=== PATIENT | female | born 1950 | race Caucasian/White ===

== ENCOUNTER 2019-06-26 10:47 | Outpatient (CLI) | payer MEDICARE, SELFPAY ==
--- NOTE | 2019-06-26 10:52 | XR_ITS ---
WS: [id number] SCREENING DEXA SCAN [email or web address] CLINICAL INFORMATION: ASYMPTOMATIC POSTMENOPAUSAL COMPARISON: None. FINDINGS: The L1-L4 bone mineral density measures 1.067 g/cm2. This corresponds to a T score score of -0.9 and Z score of 0.3. Left femoral neck bone mineral density measures 0.862 g/cm2. This corresponds to a T score of -1.2 an d Z score of -0.1. Right femoral neck bone mineral density measures 0.908 g/cm2. This corresponds to a T score -0.8of an d Z score of 0.3. Mean femoral neck bone mineral density measures 0.885 g/cm2. This corresponds to a T score of -1.0 an d Z score of 0.1. XR/XR DEXA axial skeleton* [id number] IMPRESSION: Osteopenia at the lower end of the range. Patient's FRAX calculated 10 year probability for major osteoporotic fracture i s 27.8 % and osteoporotic hip fracture is 4.7%.
== END 2019-06-26 10:48 | disposition home or self-care (01) ==
PROVIDERS: Family Provider Internal Medicine; PCP Internal Medicine; Visit Provider Internal Medicine
DX: Z78.0 Asymptomatic menopausal state (principal)
CPT/HCPCS: 77080

== ENCOUNTER → 2019-07-03 11:48 | Outpatient (BNVA) | payer MEDICARE, SELFPAY | PROVIDERS: Family Provider Internal Medicine; PCP Internal Medicine; Referring Provider Internal Medicine; Visit Provider Podiatrist Foot & Ankle Surgery | DX: L60.3 Nail dystrophy (principal) | CPT/HCPCS: 87210 ==

== ENCOUNTER 2020-05-12 08:03 | Outpatient (CLI) | payer MEDICARE, SELFPAY ==
--- NOTE | 2020-05-12 08:08 | MM_ITS ---
WS: [id number] BILATERAL SCREENING DIGITAL MAMMOGRAM WITH CAD HISTORY: SCREENING COMPARISON: 12/25/2018, 12/03/2018 and 12/27/2012, 10/02/2009 Bilateral CC and MLO views submitted. Computer aided detection analyzed. Breast composition: The breasts are heterogeneously dense, which may obscure small masses. No suspici ous masses, microcalcifications or architectural distortion. Benign breast arterial calcifications. A symmetry in the superior posterior LEFT breast is stable. Benign lymph node against the posterior RIG HT pectoralis muscle. MM/[place] [id number] IMPRESSION: BI-RADS: 2-Benign FOLLOW UP: 1 Year Follow-up
== END 2020-05-12 08:04 | disposition home or self-care (01) ==
LOC: RADSHAW 08:06
PROVIDERS: Family Provider Internal Medicine; PCP Internal Medicine; Visit Provider Internal Medicine
DX: Z12.31 Encounter for screening mammogram for malignant neoplasm of breast (principal)
CPT/HCPCS: 77067

== ENCOUNTER 2020-06-17 15:13 | Outpatient (CLI) | payer MEDICARE, SELFPAY | END 2020-06-17 15:14 | disposition home or self-care (01) | LOC: SPT 15:13 | PROVIDERS: Family Provider Internal Medicine; PCP Internal Medicine; Visit Provider Podiatrist Foot & Ankle Surgery | DX: Z46.89 Encounter for fitting and adjustment of other specified devices (principal); M72.2 Plantar fascial fibromatosis | CPT/HCPCS: 97760; L4397 ==

== ENCOUNTER 2021-08-09 10:54 | Outpatient (CLI) | payer MEDICARE, SELFPAY ==
--- NOTE | 2021-08-09 11:00 | MM_ITS ---
WS: [id number] SCREENING DIGITAL MAMMOGRAM WITH CAD HISTORY: SCREENING COMPARISON: 05/12/2020, 12/25/2018, 12/03/2018 and 08/30/2017 Bilateral CC and MLO views submitted. Computer aided detection analyzed. Breast composition: The breasts are heterogeneously dense, which may obscure small masses. Lobulated nodule measuring 4 mm in the medial inferior RIGHT breast near 4:00 at middle depth. Breast arterial calcifications bilaterally. There is a group of calcifications and a prior biopsy clip at 1 2:00 of the LEFT breast. No increase in size or number of these calcifications. MM/[place] [id number] IMPRESSION: BI-RADS: 0-Incomplete: Need additional imaging evaluation FOLLOW UP: Need Additional Imaging RIGHT breast: Spot compression views (CC and MLO). True ML. Ultrasound to follo w if abnormality persists.
== END 2021-08-09 10:55 | disposition home or self-care (01) ==
PROVIDERS: PCP Internal Medicine; Visit Provider Internal Medicine
DX: Z12.31 Encounter for screening mammogram for malignant neoplasm of breast (principal)
CPT/HCPCS: 77067

== ENCOUNTER 2021-08-30 08:28 | Outpatient (CLI) | payer MEDICARE, SELFPAY ==
--- NOTE | 2021-08-30 08:38 | MM_ITS ---
WS: [id number] ADDITIONAL VIEWS RIGHT MAMMOGRAM RIGHT BREAST ULTRASOUND HISTORY: RIGHT ABNORMAL MAMMOGRAM COMPARISON: 08/09/2021, 05/12/2020, 12/03/2018 RIGHT MAMMOGRAM: Spot compression views and true ML. The abnormality persists in the medial RIGHT breast near 3-4 o'clock. This is at middle depth. RIGHT BREAST ULTRASOUND 2-D and color Doppler imaging submitted. Ultrasound at 3:00, 1 cm from the nipple demonstrates a slightly lobulated cyst measuring 4 x 5 x 4 m m which is very slightly complex. This does correspond in position and size and shape to the mammogra phic abnormality. There is a smaller cyst at 5:00, 2 cm from the nipple. MM/[place] [id number] IMPRESSION: BI-RADS: 3-Probably Benign FOLLOW UP: 6 Month Follow-up Recommend limited RIGHT breast ultrasound follow-up in 6 months of the complex cyst at 3:00, 1 cm from the nipple.
== END 2021-08-30 08:29 | disposition home or self-care (01) ==
LOC: RADSHAW 08:34
PROVIDERS: PCP Internal Medicine; Visit Provider Internal Medicine
DX: R92.8 Other abnormal and inconclusive findings on diagnostic imaging of breast (principal); N60.01 Solitary cyst of right breast
CPT/HCPCS: 76642; 77061

== ENCOUNTER 2021-11-09 07:28 | Outpatient (CLI) | payer MEDICARE, SELFPAY ==
--- NOTE | 2021-11-09 07:37 | USCV_ITS ---
Darius Babcock Age: 71 Gender: F : 1950 Exam Date: 11/09/2021 07:56 Ordering Phys: Missy Fowler MD Technologist: TAO Exam Location: [facility] [place] Indication: Near syncope BP: 120 / 64 HR: 60 Rhythm: Sinus Technical Quality: Adequate MEASUREMENTS (Male / Female) Normal Values 2D ECHO LV Diastolic Diameter PLAX 2.4 cm 4.2 - 5.9 / 3.9 - 5.3 cm LV Systolic Diameter PLAX 1.7 cm IVS Diastolic Thickness 1.1 cm 0.6 - 1.0 / 0.6 - 0.9 cm IVS Systolic Thickness 1.5 cm LVPW Diastolic Thickness 1.2 cm 0.6 - 1.0 / 0.6 - 0.9 cm LVPW Systolic Thickness 1.2 cm RV Chamber Size 2.4 cm LVOT Diameter 2.0 cm LV Ejection Fraction 2D Teich 62.4 % LV Ejection Fraction MOD 2C 59.5 % LV Ejection Fraction 2C AL 59.9 % LA Diameter 2.3 cm LA Width 2.6 cm LA Height 3.4 cm RA Width 2.1 cm RA Height 3.4 cm Aorta at Sinotubular Diameter 2.4 cm IVC Diameter 1.4 cm M-MODE Aortic Annulus Diameter 2.9 cm LA Ao Ratio MM 0.7 MV E Point Septal Separation 1.0 cm DOPPLER AV Peak Velocity 123.0 cm/s LVOT Peak Velocity 90.0 cm/s AV Area Cont Eq vti 2.5 cm squared AV Area Cont Eq pk 2.3 cm squared MV Area PHT 2.8 cm squared Mitral E to A Ratio 0.9 MV E' Velocity 50.5 cm/s Mitral E to MV E' Ratio 12.8 Mitral E to LV E' Lateral Ratio 12.7 Mitral E to LV E' Septal Ratio 13.2 TR Peak Velocity 369.0 cm/s TR Peak Gradient 54.5 mmHg TV Peak E Velocity 50.0 cm/s PV Peak Velocity 95.0 cm/s RV Acceleration Time 0.1 s RV Ejection Time 0.3 s RV AcT/ET 0.3 FINDINGS Left Ventricle Normal left ventricular size and systolic function, EF 61 %. Mild hypokinesia of the basal inferior wall segment.mild left ventricular hypertrophy. Grade II/IV diastolic dysfunction, moderately elevated filling pressures. Right Ventricle Normal right ventricular size and systolic function. Right Atrium The right atrium is normal in size. Left Atrium Mildly increased left atrial size. Mitral Valve Thickened mitral valve. Aortic Valve Thickened aortic valve. Tricuspid Valve No gross abnormalities noted Pulmonic Valve Pulmonic valve not well visualized. Pericardium Normal pericardium without effusion. Aorta Normal ascending aorta dimension. IVC Of normal size CONCLUSIONS Normal left ventricular size and systolic function, EF 61 %. Mild hypokinesia of the basal inferior wall segment.mild left ventricular hypertrophy. Grade II/IV diastolic dysfunction, moderately elevated filling pressures. Mildly increased left atrial size. Minimally thickened aortic and mitral valves. No significant stenotic or regurgitant lesions. There is no pericardial effusion. Technically difficult study because of the poor ultrasonic window. No previous study is available for comparison. Dr Stacey Ribeiro MD FACC (Electronically Signed) Final Date: 09 Nov 2021 13:10 S
== END 2021-11-09 07:29 | disposition home or self-care (01) ==
PROVIDERS: PCP Internal Medicine; Visit Provider Internal Medicine
DX: R55 Syncope and collapse (principal); I51.7 Cardiomegaly
CPT/HCPCS: 93306

== ENCOUNTER → 2021-11-18 12:59 | Outpatient (BNVA) | payer MEDICARE, SELFPAY | PROVIDERS: PCP Internal Medicine; Visit Provider Orthopaedic Surgery | DX: M16.11 Unilateral primary osteoarthritis, right hip (principal); M17.11 Unilateral primary osteoarthritis, right knee; M17.12 Unilateral primary osteoarthritis, left knee; M25.569 Pain in unspecified knee | CPT/HCPCS: 73502; 73560; 73565; 99203 ==

== ENCOUNTER → 2021-12-09 10:53 | Outpatient (BNVA) | payer MEDICARE, SELFPAY | PROVIDERS: PCP Internal Medicine; Visit Provider Internal Medicine Cardiovascular Disease | DX: R07.9 Chest pain, unspecified (principal); M17.11 Unilateral primary osteoarthritis, right knee; R06.02 Shortness of breath | CPT/HCPCS: 99203 ==

== ENCOUNTER 2021-12-21 08:58 | Outpatient (CLI) | payer MEDICARE, SELFPAY ==
--- NOTE | 2021-12-21 10:17 | ECG_ITS ---
[facility] Test Date: 2021-12-21 Pat Name: Darius Babcock Department: Room: Gender: Female Cytotechnologist: Shikha Cardona : 1950 Requested By: Luciano Paz Order Number: [id number] Gerry MD: Mt Torres M.D. Interpretive Statements NAME OF STUDY: LEXISCAN SESTAMIBI STRESS TEST INDICATION: [cp, ] Procedure: At the baseline, the blood pressure was 127/75 mmHg with a heart rate of 63 bpm. The electrocardiogram showed normal sinus rhythm, normal axis with normal ST and T's. The Lexiscan was infused over a period of 20 seconds. A total of 0.4 mg of Lexiscan was infused. The stress phase was continued for a total of 5 minutes. Heart rate was at the end of stress phase was 87 bpm and a blood pressure of 161/80 mmHg. The EKG at the peak infusion revealed since normal sinus rhythm with no significant ST-T wave changes. Sestamibi was injected 20 seconds after the Lexiscan infusion. Blood pressure at the end of recovery phase was 161/78 mmHg with a heart rate of 78 bpm. Conclusion: 1. Normal EKG response to Lexiscan infusion 2. No Lexiscan induced chest pain or cardiac arrhythmia. 3. Normal blood pressure and heart rate response. 4. Sestamibi/sestamibi perfusion scan pending; see separate report. Electronically Signed On 01-01-2022 12:22:17 CDT by Mt Torres M.D. [id number]
--- NOTE | 2021-12-21 10:17 | NMCV_ITS ---
NM adam perf SPECT r/s* [id number] Darius Babcock Age: 71 Gender: F : 1950 Exam Date: 12/21/2021 10:40 Ordering Phys: Luciano Paz MD ([email or web address]) Technologist: MICKI Miramontes Exam Location: [facility] Indications: CHEST PAIN STRESS TEST Please see separate stress test report in [facility] for full findings IMAGE PROTOCOL Rest/Stress 1 Lexiscan Day Radiopharmaceutical Dose (mCi) Administration Site Administered by Rest: Tc-99m 10.7 IV MICKI Minaya Sestamibi Stress:Tc-99m 32.4 IV MICKI Minaya Sestamibi Rest: 21-Dec-2021 60 Discovery 630 Stress: 21-Dec-2021 30 Discovery 630 0.4mg Lexiscan. Images obtained in supine and prone position. SPECT RESULTS Technical Quality: Excellent Raw Data Analysis: Normal Image Corrections: No attenuation or motion correction applied Summed Stress Score: 0 Summed Rest Score: 14 Summed Difference Score: 0 PERFUSION FINDINGS SPECT images demonstrate homogeneous tracer distribution throughout the myocardium. FUNCTIONAL RESULTS (calculated via Gated SPECT) Stress Image LV EF (%): 70 Stress EDV (mL):77 TID: 1.12 Stress ESV (mL):23 FUNCTIONAL FINDINGS: There is normal left ventricular systolic function. IMPRESSIONS 1. Normal myocardial perfusion imaging with no evidence of ischemia 2. LV systolic function is normal Mt Torres MD (Electronically Signed) Final Date: 23 December 2021 10:24 S
[2021-12-21 10:18] VITALS: BMI 33.6
[2021-12-21 11:27] VITALS: BP 161/78; PULSE 78
[2021-12-21] MEDS: regadenoson 0.4 Mg/5 ml Syringe IVP (11:27)
== END 2021-12-21 08:59 | disposition home or self-care (01) ==
PROVIDERS: PCP Internal Medicine; Visit Provider Internal Medicine Cardiovascular Disease
DX: R07.89 Other chest pain (principal)
CPT/HCPCS: 78452; 93017; A9500; J2785

== ENCOUNTER → 2022-01-31 13:00 | Outpatient (BNVA) | payer MEDICARE, SELFPAY | PROVIDERS: PCP Internal Medicine; Visit Provider Internal Medicine Cardiovascular Disease | DX: R07.9 Chest pain, unspecified (principal); I10 Essential (primary) hypertension | CPT/HCPCS: 99213; 99214 ==

== ENCOUNTER 2022-04-12 08:58 | Outpatient (CLI) | payer MEDICARE, SELFPAY ==
--- NOTE | 2022-04-12 09:12 | US_ITS ---
WS: [id number] ULTRASOUND RIGHT BREAST HISTORY: ABNORMAL MAMMO COMPARISON: 08/30/2021 and 08/09/2021 TECHNIQUE: 2-D and Doppler. No change in the hypoechoic nodules in the RIGHT breast at the areolar and also 1 cm. There are 2 zion y similar hypoechoic nodule which are probably complex cysts. Nevertheless, no increase in size and n o increased vascularity. The nodule at 3:00 measures 3 x 3 x 6 mm. The additional nodule at 1 cm from the nipple measures 4 x 3 x 5 mm. US/US breast RT limited* [id number] IMPRESSION: BI-RADS: 3-Probably Benign FOLLOW-UP: 6 Month Follow-up Patient to return in 6 months for annual mammogram in August 2022. Follow-up ult rasound of these indeterminate but likely benign RIGHT breast nodules at 3:00 r ecommended.
== END 2022-04-12 08:59 | disposition home or self-care (01) ==
LOC: RAD 09:01
PROVIDERS: PCP Internal Medicine; Visit Provider Internal Medicine
DX: R92.8 Other abnormal and inconclusive findings on diagnostic imaging of breast (principal)
CPT/HCPCS: 76642

== ENCOUNTER 2022-09-02 12:51 | Outpatient (CLI) | payer MEDICARE, SELFPAY ==
--- NOTE | 2022-09-02 13:08 | XR_ITS ---
WS: [id number] SCREENING DEXA SCAN [employer] CLINICAL INFORMATION: ASYMPTOMATIC MENOPAUSAL STATE COMPARISON: June 26, 2019 FINDINGS: The L1-L4 bone mineral density measures 1.070 g/cm2. This corresponds to a T score score of -0.9 and Z score of 0.1. Left femoral neck bone mineral density measures 0.864 g/cm2. This corresponds to a T score of -1.1 an d Z score of -0.1. Right femoral neck bone mineral density measures 0.915 g/cm2. This corresponds to a T score -0.7of an d Z score of 0.3. Mean femoral neck bone mineral density measures 0.889 g/cm2. This corresponds to a T score of -0.9 an d Z score of 0.1. XR/XR DEXA axial skeleton* [id number] IMPRESSION: Normal bone mineralization lumbar spine at the lower end of the range approachi ng osteopenia. Osteopenia femoral necks. Patient's FRAX calculated 10 year probability for major osteoporotic fracture i s 18.0 % and osteoporotic hip fracture is 5.9%. Bone mineralization lumbar spine has increased 0.3% since 2019 Bone mineralization femoral necks has increased 0.5% since 2019
== END 2022-09-02 12:52 | disposition home or self-care (01) ==
LOC: RAD 12:52
PROVIDERS: PCP Nurse Practitioner Family; Visit Provider Nurse Practitioner Family
DX: Z78.0 Asymptomatic menopausal state (principal); M85.88 Other specified disorders of bone density and structure, other site
CPT/HCPCS: 77080

== ENCOUNTER 2022-10-14 09:33 | Outpatient (CLI) | payer MEDICARE, SELFPAY ==
--- NOTE | 2022-10-14 09:49 | US_ITS ---
WS: [id number] ULTRASOUND BREAST RIGHT TECHNIQUE: Ultrasound right breast focused area of concern. CLINICAL INFORMATION: R ABNORMAL MAMMO COMPARISON: April 12, 2022 FINDINGS: No significant change in the small previously described 3:00 breast cyst at the areola measuring 4.4 x 4.6 x 3.9 mm. In addition, small hypoechoic nodule at the 3:00 position 1 cm from the nipple likel y a small complex cyst with through transmission is also unchanged. No suspicious new findings. US/US breast RT limited* [id number] IMPRESSION: BI-RADS 2 benign FOLLOW UP: Return to annual screening mammography.
== END 2022-10-14 09:34 | disposition home or self-care (01) ==
PROVIDERS: PCP Nurse Practitioner Family; Visit Provider Nurse Practitioner Family
DX: R92.8 Other abnormal and inconclusive findings on diagnostic imaging of breast (principal)
CPT/HCPCS: 76642

== ENCOUNTER 2022-10-17 12:37 | Outpatient (CLI) | payer MEDICARE, SELFPAY ==
--- NOTE | 2022-10-17 13:06 | MM_ITS ---
WS: [id number] BILATERAL 3D TOMOSYNTHESIS DIGITAL SCREENING MAMMOGRAPHY WITH CAD CLINICAL INFORMATION: SCREENING HISTORY: Screening mammogram. No current complaints. COMPARISON: Mammogram and ultrasound 2021 TECHNIQUE: Bilateral CC and MLO views. FINDINGS: The breasts are composed of heterogeneous fibroglandular density tissue, which can limit the detectio n of small underlying mass lesions. No suspicious mass, asymmetry, calcifications, or architectural d istortion. No evidence of malignancy. Vascular calcification. Biopsy clip LEFT breast. A few incident al calcifications. MM/[place] [id number] IMPRESSION: BI-RADS: 2-Benign FOLLOW UP: 1 Year Follow-up Recommend return to annual screening mammography.
== END 2022-10-17 12:38 | disposition home or self-care (01) ==
PROVIDERS: PCP Nurse Practitioner Family; Visit Provider Nurse Practitioner Family
DX: Z12.31 Encounter for screening mammogram for malignant neoplasm of breast (principal)
CPT/HCPCS: 77063; 77067

== ENCOUNTER 2023-07-17 19:35 | Emergency (ER) | payer MEDICARE, SELFPAY ==
[2023-07-17 19:43] VITALS: BP 133/79; PULSE 78; RESP 16; TEMP 37.5; O2SAT 95; BMI 32.9
[2023-07-17] MEDS: glucagon 1 mg/mL KIT 1 mL IM (19:57)
--- NOTE | 2023-07-17 20:13 | ED_ITS ---
HPI - General Adult General: Chief complaint: Airway/Esophagus Foreign Body Stated complaint: airway obstruction Time Seen by Provider: 07/17/23 19:45 Source: patient and EMS Mode of arrival: EMS Limitations: no limitations History of Present Illness: 73-year-old female states that she is ea ting rice and felt like she had got stuck in her esophagus. She states this happened just prior to arrival states she has not been able to tolerate any liquids since she states anything she drinks comes back up. States she had to have her esophagus stretched in the past. States that she feels the food bolus right in her chest she denies any coughing or shortness of breath. No vomiting. Associated symptoms: Deny chest pain, dyspnea, headache(s), nausea, rash or vomiting Review of Systems Const: Denies: fever(s) or chills Eyes: Denies: blurry vision or eye discomfort ENMT: Denies: throat pain Card: Denies: chest pain Resp: Denies: dyspnea GI: Reports: dysphagia; Denies: abdominal pain, nausea, vomiting or diarrhea : Denies: dysuria or dribbling Musc: Denies: neck pain or back pain Skin/Breast: Denies: rash Neuro: Denies: headache(s) PFSH ED PFSH: Medical History Obesity EDUARDO (obstructive sleep apnea) GERD (gastroesophageal reflux disease) Dyslipidemia HTN (hypertension) Foreign body of ear, left SOB (shortness of breath) Chest pain Family History Father Diabetes Hypertension Stroke Brother Diabetes Plaque psoriasis Present in 4/4 Brothers Brother CAD (coronary artery disease), Onset Age: 64 CABG Plaque psoriasis Present in 4/4 Brothers Brother Atrial fibrillation Plaque psoriasis Present in 4/4 Brothers Brother Plaque psoriasis Present in 4/4 Brothers Social History Smoking and tobacco/nicotine status: never used tobacco/nicotine Physical Exam Const: COMMON NORMALS: no acute distress, patient oriented x3 and healthy appearing HENMT: COMMON NORMALS: normocephalic and atraumatic HEAD & SCALP: normo cephalic and atraumatic Neck/C-Spine: COMMON NORMALS: full ROM and supple Chest: COMMONS NORMALS: normal inspection of the chest Resp: COMMON NORMALS: normal respiratory effort Cardio: COMMON NORMALS: regular rate, regular rhythm and No murmurs present (Cardio) RATE: regular rate RHYTHM: regular rhythm GI: COMMON NORMALS: Normal to inspection, nondistended, normoactive bowel sounds present, Soft to palpation, non-tender and no masses PALPATION: Yes Soft to palpation Extremity: COMMON NORMALS: normal to inspection and full ROM Neuro: COMMON NORMALS: patient oriented x3, moves all extremities and no focal motor deficits Psych: COMMON NORMALS: mental status grossly normal, Normal thought process present and cooperative THOUGHT PROCESS: Normal thought process present Skin: COMMON NORMALS: no rashes or lesions noted and no wounds GENERAL SKIN EXAM: no rashes or lesions noted Course Vital Signs: Vital signs: Vital Signs Temperature 99.5 F 07/17/23 19:43 Pulse Rate 66 07/17/23 20:25 Respiratory Rate 16 07/17/23 20:25 Blood Pressure 159/76 07/17/23 20:25 Pulse Oximetry 92 07/17/23 20:25 Oxygen Delivery Me thod Room Air 07/17/23 19:43 MDM - General Adult Medical Decision Making Patient presents here with an esophageal food impaction it resolved here after glucagon she is able to tolerate p.o. without any difficulty she stable for discharge we will get her follow-up with surgery for likely EGD she is return if worsening she understands agrees to plan Medical Records I reviewed the patient's medical records. No radiology studies performed this visit Discharge Plan Discharge Patient Disposition: Home Clinical Impression: Food impaction of esophagus Qualifiers: Encounter type: initial encounter Qualified Code(s): T18.128A - Food in esophagus causing other injury, initial encounter Condition: Stable Prescriptions: No Action duloxetine 30 mg capsule, delayed rel sprinkle 30 mg PO QDAY lisinopril 40 mg tablet 40 mg PO QDAY klualnqaqo-qknivhrrcoyxz-oxhc [Fioricet] 50-300-40 mg capsule 1 cap PO Q8H PRN atenolol 25 mg tablet 50 mg PO QDAY albuterol sulfate [ProAir HFA] 90 mcg/actuation HFA aerosol inhaler 1 inh INHALATION ONCE PRN amlodipine 10 mg tablet 10 mg PO DAILY famotidine [Pepcid] 20 mg tablet 20 mg PO DAILY pantoprazole 40 mg tablet,delayed release (DR/EC) 40 mg PO DAILY potassium chloride [Klor-Con M20] 20 mEq tablet,ER particles/crystals 10 meq PO DAILY (DME) Night Splint See Rx Instructions .Route .MEDSUPPLY Qty: 1 0RF Rx Instructions: As directed diclofenac sodium [Voltaren] 1 % gel 2 g topical QID PRN Rx Instructions: apply to single elbow, wrist or hand; for hand includes palm/fingers/back of hand multivitamin Tablet 1 tab PO DAILY cholecalciferol (vitamin D3) 125 mcg (5,000 unit) capsule 125 mcg PO DAILY atorvastatin 10 mg tablet PO pimecrolimus [Elidel] 1 % cream 1 applic topical BID Qty: 100 1RF Rx Instructions: To affected areas in skin folds prn Discharge Orders: Discharge ED (Routine); Ordered 07/17/23 Ordered By: Celia Washington Referrals: Wilfrid Li MD [Physician] - 1-3 days Gia Licea NP [Primary Care Provider] - Discharge Diet: Advance as tolerated Discharge Activity: Resume usual activity Patient Instructions: Dysphagia (ED) Coding Level of Care Code ED Sociology Instructor for [employer]
[2023-07-17 20:25] VITALS: BP 159/76; PULSE 66; RESP 16; O2SAT 92
[2023-07-17 21:15] VITALS: BP 159/76; PULSE 66; RESP 16; TEMP 37.5; O2SAT 92
--- NOTE | 2023-07-19 07:47 | DCPLANNER ---
sent to GEN surg/ esophageal food impaction-
== END 2023-07-17 21:17 | disposition home or self-care (01) ==
PROVIDERS: Emergency Provider Emergency Medicine; PCP Nurse Practitioner Family
DX: T18.128A Food in esophagus causing other injury, initial encounter (principal); W44.F3XA Food entering into or through a natural orifice, initial encounter; E78.5 Hyperlipidemia, unspecified; I10 Essential (primary) hypertension
CPT/HCPCS: 96372; 99284; J1610

== ENCOUNTER → 2023-08-01 12:35 | Outpatient (BNVA) | payer MEDICARE, SELFPAY | PROVIDERS: PCP Nurse Practitioner Family; Referring Provider Emergency Medicine; Visit Provider Surgery | DX: K21.9 Gastro-esophageal reflux disease without esophagitis (principal) | CPT/HCPCS: 99203 ==

== ENCOUNTER 2023-08-04 07:52 | Outpatient (CLI) | payer MEDICARE, SELFPAY ==
--- NOTE | 2023-08-04 08:02 | USCV_ITS ---
Darius Babcock Age: 73 Gender: F : 1950 Exam Date: 08/04/2023 08:29 Ordering Phys: Gia Licea NP Technologist: José Nice Exam Location: [facility] – [place] Indication: headache Risk Factors: Previous Vascular Surgery: Right Brachial BP: / Left Brachial BP: / Right Left Velocity (cm/s) Spectral Plaque Velocity (cm/s) Spectral Plaque Syst/Diast Broadening Syst/Diast Broadening 105.50/16.40 Prox CCA 99.80 / 21.30 72.50/ 19.70 Mid CCA 81.80 / 24.80 114.20/32.40 Distal CCA 72.90 / 23.30 37.30/ 9.80 Prox ICA 45.80 / 13.30 47.10/ 14.20 Mid ICA 62.20 / 22.30 79.00/ 28.60 Distal ICA 74.30 / 25.80 61.50 ECA 80.00 0.70 ICA/CCA 1.00 Antegrade Vertebral Antegrade 78.60/ 23.60 cm/s 53.10/ 17.00 cm/s Tri Subclavian Tri 99.80 90.70 CONCLUSIONS Right ICA stenosis <50%. Left ICA stenosis <50%. Normal antegrade Doppler flow noted in the right vertebral artery. Normal antegrade Doppler flow noted in the left vertebral artery. Wesley Koch MD (Electronically Signed) Final Date: 04 August 2023 14:10 S
== END 2023-08-04 07:53 | disposition home or self-care (01) ==
LOC: RAD 07:52
PROVIDERS: PCP Nurse Practitioner Family; Visit Provider Nurse Practitioner Family
DX: I65.23 Occlusion and stenosis of bilateral carotid arteries (principal)
CPT/HCPCS: 93880

== ENCOUNTER 2023-08-10 08:19 | Day surgery (SDC) | payer MEDICARE, SELFPAY ==
[2023-08-10 08:39] VITALS: BP 144/85; PULSE 65; RESP 18; TEMP 36.3; O2SAT 97; BMI 34.7
--- NOTE | 2023-08-10 08:39 | W.PM.OPSUD ---
Surgery/Procedure H&P Update DATE OF PROCEDURE: August 10, 2023 DATE H&P PERFORMED: 08/01/23 PLANNED PROCEDURE: Operation Date: 08/10/23 09:25 Proposed Procedures p 12527 egd w /balloon dialation K21.9(Not Applicable) - Wilfrid Li MD
[2023-08-10] MEDS: sodium chloride 0.9% 1,000 ML 30 ML IV (08:51)
--- NOTE | 2023-08-10 08:54 | ANES.PREANE2 ---
Pre-Anesthetic Assessment Height/Weight: Height 1.57 m Weight 86.183 kg Temp Pulse Resp BP Pulse Ox O2 Del Method 97.3 F L 65 18 144/85 97 Room Air 08/10/23 08:39 08/10/23 08:39 08/10/23 08:39 08/10/23 08:39 08/10/23 08:39 08/10/23 08:39 Preop Diagnosis: GERD Operation Date: 08/10/23 09:25 Proposed Procedures p [id number] egd w /balloon dialation K21.9(Not Applicable) - Wilfrid Li MD Familial anesthetic complications: None Was Beta Korina taken within 24 hours: Yes Was Clonidine taken within 24 hours: N/A Last intake: Intake Last Liquid Date 08/09/23 Last Liquid Time 18:00 Last Solid Date 08/09/23 Last Solid Time 18:00 Social No alcohol and No tobacco Exam alert, oriented x 3, clear to auscultation bilaterally and regular rate & rhythm Airway Submandibular: within normal limits (TMJ) Cervical ROM: within normal limits Mallampati: Class II Dentition: full History/ROS No significant history except as noted and No significant complaints Pulmonary Asthma, Exertional Dyspnea and Sleep Apnea (No CPAP) CV/HEM Hypertension CONCLUSIONS Normal left ventricular size and systolic function, EF 61 %. Mild hypokinesia of the basal inferior wall segment.mild left ventricular hypertrophy. Grade II/IV diastolic dysfunction, moderately elevated filling pressures. Mildly increased left atrial size. Minimally thickened aortic and mitral valves. No significant stenotic or regurgitant lesions. There is no pericardial effusion. Technically difficult study because of the poor ultrasonic window. No previous study is available for comparison. None reported Hepatic None reported GI Gastroesophageal Reflux Disease (Controlled with meds) Multiple esophageal dilations H/O food impaction Metabolic Hyperlipidemia and Morbid Obesity [facility] [place]/skel Lower Back Pain and Osteoarthritis/DJD Neuropsych Headache Anesthetic Plan ASA status: 3 Anesthesia: Anesthesia Evaluation, General and MAC Risk of > 500 ml blood loss (7ml/kg in children): No Medications/Allergies Home Medications Medication Instructions Recorded Confirmed Last Taken Type fvedmevydq-qtrntopgewdzf-viaabamj 1 cap PO Q8H PRN Headache 07/03/19 08/08/23 Unknown History 50 mg-300 mg-40 mg capsule (Fioricet) duloxetine 30 mg capsule,delayed 30 mg PO QDAY 07/03/19 08/08/23 08/09/23 History release sprinkle lisinopril 40 mg tablet 40 mg PO QDAY 07/03/19 08/08/23 08/09/23 History Night Splint #1 ea 06/17/20 08/01/23 Unknown Rx amlodipine 10 mg tablet 10 mg PO DAILY 06/17/20 08/08/23 08/09/23 History famotidine 20 mg tablet (Pepcid) 20 mg PO DAILY 06/17/20 08/08/23 08/09/23 History pantoprazole 40 mg tablet,delayed 40 mg PO DAILY 06/17/20 08/08/23 08/09/23 History release potassium chloride 20 mEq 10 meq PO DAILY 06/17/20 08/08/23 08/09/23 History tablet,extended release(part/cryst) (Klor-Con M) albuterol sulfate 90 mcg/actuation 1 inh inhalation DAILY PRN 12/09/21 08/08/23 Unknown History aerosol inhaler (ProAir HFA) Shortness Of Breath Or Wheezing diclofenac sodium 1 % topical gel 2 g topical QID PRN Pain 12/09/21 08/08/23 Unknown History (Voltaren) atorvastatin 10 mg tablet 10 mg PO DAILY 02/03/22 08/08/23 08/09/23 History cholecalciferol (vitamin D3) 125 125 mcg PO DAILY 02/03/22 08/08/23 08/09/23 History mcg (5,000 unit) capsule multivitamin 1 tab PO DAILY 02/03/22 08/08/23 08/09/23 History atenolol 25 mg tablet 37.5 mg PO DAILY 08/01/23 08/08/23 08/09/23 History clonidine HCl 0.1 mg tablet 0.5 mg PO DAILY PRN Blood Pressure 08/01/23 08/10/23 07/20/23 History fluticasone propionate 50 1 spray intranasal BID PRN Allergy 08/10/23 08/10/23 08/09/23 History mcg/actuation nasal Symptoms spray,suspension Allergies Allergy/AdvReac Type Severity Reaction Status Date / Time codeine Allergy Unknown unknown Verified 08/08/23 11:44 Penicillins Allergy Unknown unknown Verified 08/08/23 11:44 sulfacetamide Allergy Unknown unknown Verified 08/08/23 11:44 [From Sulfamide] Current Medications Generic Name Dose Route Start Last Admin Trade Name Yomiq PRN Reason Stop Dose Admin Sodium Chloride 1,000 mls @ 30 mls/hr 08/10/23 08:30 08/10/23 08:51 Sodium Chloride 0.9% IV 08/11/23 08:29 30 mls/hr .Q24H ABBI Administration PFSH Anesthesia Medical History (Updated 08/01/23 @ 13:[address]) Obesity EDUARDO (obstructive sleep apnea) GERD (gastroesophageal reflux disease) Dyslipidemia HTN (hypertension) Foreign body of ear, left SOB (shortness of breath) Chest pain Family History Father Diabetes Hypertension Stroke Brother Diabetes Plaque psoriasis Present in 4/4 Brothers Brother CAD (coronary artery disease), Onset Age: 64 CABG Plaque psoriasis Present in 4/4 Brothers Brother Atrial fibrillation Plaque psoriasis Present in 4/4 Brothers Brother Plaque psoriasis Present in 4/4 Brothers Social History Smoking and tobacco/nicotine status: never used tobacco/nicotine Data Anesthesia Cardiac Studies: Echocardiogram 11/09/21 Sestamibi Stress Test (Cardiology) 12/21/21
[2023-08-10 09:22] LABS: Blood Urea Nitrogen 11 mg/dL (8-23); Calcium 9.1 mg/dL (8.5-10.5); Carbon Dioxide 27 mmol/L (22-29); Chloride 106 mmol/L (98-107); Creatinine Clr Calc Pharmacy 64.7573; Glucose 115 mg/dL (65-115); Osmolality Calculated 294 mOsm/kg (285-295); Sodium 142 mmol/L (136-145)
[2023-08-10 10:11] VITALS: BP 104/71; PULSE 74; RESP 16; TEMP 36.4; O2SAT 92
[2023-08-10 10:36] VITALS: BP 138/67; PULSE 58; RESP 18; O2SAT 96
--- NOTE | 2023-08-10 14:23 | ANE.PACU2 ---
Inpatient post-anesthesia follow up: Airway intact: Yes Vital signs: Temperature 97.5 F Pulse Rate 58 Respiratory Rate 18 Blood Pressure 138/67 Pulse Oximetry 96 Oxygen Delivery Me thod Room Air Oxygen Flow Rate 3 Fraction of Inspir ed Oxygen Hydration adequate: Yes Nausea and vomiting: No Pain level: 2 Mental status: Baseline
== END 2023-08-10 10:50 | disposition home or self-care (01) ==
PROVIDERS: Anesthesiology; PCP Nurse Practitioner Family; Visit Provider Surgery
DX: K21.9 Gastro-esophageal reflux disease without esophagitis (principal); K22.2 Esophageal obstruction; K29.50 Unspecified chronic gastritis without bleeding; I10 Essential (primary) hypertension; E78.5 Hyperlipidemia, unspecified; E66.01 Morbid (severe) obesity due to excess calories; Z68.34 Body mass index [BMI] 34.0-34.9, adult; G47.33 Obstructive sleep apnea (adult) (pediatric)
CPT/HCPCS: 36415; 43239; 43249; 80048; 88305; J2704; J7030

== ENCOUNTER 2023-08-23 07:59 | Outpatient (CLI) | payer MEDICARE, SELFPAY ==
--- NOTE | 2023-08-23 08:15 | US_ITS ---
WS: [id number] ULTRASOUND ABDOMEN CLINICAL INFORMATION: FATTY (CHANGE OF) LIVER, NOT ELSEWHERE CLASSIFIED COMPARISON: None. FINDINGS: Liver Size: Mild hepatomegaly Craniocaudal length: 17.4 cm. Echogenicity: Coarse with fatty infiltration Surface nodularity: None. Mass (size and location): None. Bile ducts Intrahepatic ducts: Normal. Common bile duct diameter: 0.4 cm. Gallbladder Cholecystectomy. Pancreas Normal as visualized. Spleen Splenomegaly: Mild Craniocaudal length: 13.0 cm. Right kidney: Normal. Hydronephrosis: None. Size: 10.1 cm x 5.1 cm x 5.6 cm Left kidney: Normal. Hydronephrosis: None. Size: 10.8 cm x 5.3 cm x 5.7 cm. Abdominal aorta and IVC Visualized portions are normal. Ascites: None. IMPRESSION: 1. Mild hepatomegaly with diffuse fatty infiltration of the liver. 2. Prior cholecystectomy. 3. Normal common bile duct. 4. No hydronephrosis in either kidney. 5. Mild splenomegaly.
== END 2023-08-23 08:00 | disposition home or self-care (01) ==
LOC: RAD 07:59
PROVIDERS: PCP Nurse Practitioner Family; Visit Provider Nurse Practitioner Family
DX: K76.0 Fatty (change of) liver, not elsewhere classified (principal); R16.0 Hepatomegaly, not elsewhere classified
CPT/HCPCS: 76700

== ENCOUNTER → 2024-08-28 10:43 | Outpatient (BNVA) | payer MEDICARE, SELFPAY | PROVIDERS: PCP Nurse Practitioner Family; Referring Provider Nurse Practitioner Family; Visit Provider Surgery | DX: Z12.11 Encounter for screening for malignant neoplasm of colon (principal) | CPT/HCPCS: 99024; 99204 ==

== ENCOUNTER 2024-09-18 08:56 | Day surgery (SDC) | payer MEDICARE, SELFPAY ==
--- NOTE | 2024-09-18 09:09 | W.PM.OPSUD ---
Surgery/Procedure H&P Update DATE OF PROCEDURE: September 18, 2024 DATE H&P PERFORMED: 08/28/24 H&P UPDATE INFORMATION: I have reviewed H&P completed within last 30 days, I have examined patient prior to procedure, No changes to prior documentation, Changes to prior documentation as noted here and Risks and benefits of the procedure reviewed PLANNED PROCEDURE: Operation Date: 09/18/24 10:20 Proposed Procedures p Colonoscopy [id number] G0105 Z12.11(Not Applicable) - Wilfrid Li MD
[2024-09-18 09:10] VITALS: BP 130/75; PULSE 64; RESP 18; TEMP 36.3; O2SAT 93; BMI 34.2
[2024-09-18] MEDS: sodium chloride 0.9% 1,000 ML 15 ML IV (09:21)
--- NOTE | 2024-09-18 09:27 | ANES.PREANE2 ---
Pre-Anesthetic Assessment Height/Weight: Height 1.57 m Weight 84.822 kg Temp Pulse Resp BP Pulse Ox O2 Del Method 97.3 F L 64 18 130/75 93 Room Air 09/18/24 09:10 09/18/24 09:10 09/18/24 09:10 09/18/24 09:10 09/18/24 09:10 09/18/24 09:10 Operation Date: 09/18/24 10:20 Proposed Procedures p Colonoscopy [id number] G0105 Z12.11(Not Applicable) - Wilfrid Li MD Was Beta Korina taken within 24 hours: Yes Last intake: Intake Last Liquid Date 09/17/24 Last Liquid Time 20:00 Last Solid Date 09/16/24 Last Solid Time 18:00 Social No alcohol and No tobacco Exam alert, oriented x 3, clear to auscultation bilaterally and regular rate & rhythm Airway Submandibular: within normal limits Cervical ROM: within normal limits Mallampati: Class II Dentition: chipped History/ROS No significant complaints Pulmonary Asthma and Sleep Apnea CV/HEM Hypertension None reported Hepatic None reported GI Gastroesophageal Reflux Disease and Hiatal Hernia Metabolic Hyperlipidemia and Morbid Obesity [facility] [place] None reported Neuropsych None reported Anesthetic Plan ASA status: 2 Anesthesia: Anesthesia Evaluation, General and MAC Medications/Allergies Home Medications ?Medication ?Instructions ?Recorded ?Confirmed ?Last Taken ?Type uaelomncgj-iycqjrnqdzrsu-gqhrehzu 1 cap PO Q8H PRN Headache 07/03/19 09/18/24 09/17/24 History 50 mg-300 mg-40 mg capsule (Fioricet) duloxetine 30 mg capsule,delayed 30 mg PO QDAY 07/03/19 09/18/24 09/17/24 History release sprinkle lisinopril 40 mg tablet 40 mg PO QDAY 07/03/19 09/18/24 09/17/24 History amlodipine 10 mg tablet 10 mg PO DAILY 06/17/20 09/18/24 09/18/24 History famotidine 20 mg tablet (Pepcid) 20 mg PO DAILY 06/17/20 09/18/24 09/17/24 History potassium chloride 20 mEq 10 meq PO DAILY 06/17/20 09/18/24 09/17/24 History tablet,extended release(part/cryst) (Klor-Con M) atorvastatin 10 mg tablet 10 mg PO DAILY 02/03/22 09/18/24 09/17/24 History atenolol 25 mg tablet 37.5 mg PO DAILY 08/01/23 09/18/24 09/18/24 History clonidine HCl 0.1 mg tablet 0.5 mg PO DAILY PRN Blood Pressure 08/01/23 09/18/24 09/17/24 History pantoprazole 40 mg tablet,delayed 40 mg PO DAILY 08/28/24 09/18/24 09/18/24 History release Allergies Allergy/AdvReac Type Severity Reaction Status Date / Time codeine Allergy Unknown unknown Verified 09/18/24 09:08 Penicillins Allergy Unknown unknown Verified 09/18/24 09:08 sulfacetamide (From Allergy Unknown unknown Verified 09/18/24 09:08 Sulfamide) Current Medications Generic Name Dose Route Start Last Admin Trade Name Freq PRN Reason Stop Dose Admin Sodium Chloride 1,000 mls @ 15 mls/hr 09/18/24 09:02 09/18/24 09:21 Sodium Chloride 0.9% IV 09/19/24 09:01 15 mls/hr .Q24H PRN Administration COLONOSCOPY FLUIDS PFSH Anesthesia Medical History Obesity EDUARDO (obstructive sleep apnea) GERD (gastroesophageal reflux disease) Dyslipidemia HTN (hypertension) Foreign body of ear, left SOB (shortness of breath) Chest pain Family History Father Diabetes Hypertension Stroke Brother Diabetes Plaque psoriasis Present in 4/4 Brothers Brother CAD (coronary artery disease), Onset Age: 64 CABG Plaque psoriasis Present in 4/4 Brothers Brother Atrial fibrillation Plaque psoriasis Present in 4/4 Brothers Brother Plaque psoriasis Present in 4/4 Brothers Social History Smoking and tobacco/nicotine status: never used tobacco/nicotine Data Anesthesia Cardiac Studies: Echocardiogram 11/09/21 Sestamibi Stress Test (Cardiology) 12/21/21
[2024-09-18 09:57] VITALS: BP 134/68; PULSE 60; RESP 16; TEMP 36.2; O2SAT 95
--- NOTE | 2024-09-18 10:35 | ANE.PACU2 ---
Inpatient post-anesthesia follow up: Airway intact: Yes Vital signs: Temperature 97.1 F Pulse Rate 60 Respiratory Rate 16 Blood Pressure 134/68 Pulse Oximetry 95 Oxygen Delivery Me thod Room Air Oxygen Flow Rate Fraction of Inspir ed Oxygen Hydration adequate: Yes Nausea and vomiting: No Pain level: 1 Mental status: Baseline
== END 2024-09-18 10:35 | disposition home or self-care (01) ==
PROVIDERS: PCP Nurse Practitioner Family; Visit Provider Surgery
PROC: 0DJD8ZZ Inspection of Lower Intestinal Tract, Via Natural or Artificial Opening Endoscopic (ICD-10-PCS; CPT 45330; 2024-09-18 10:20)
DX: R19.5 Other fecal abnormalities (principal); J45.909 Unspecified asthma, uncomplicated; G47.33 Obstructive sleep apnea (adult) (pediatric); I10 Essential (primary) hypertension; E78.5 Hyperlipidemia, unspecified; K21.9 Gastro-esophageal reflux disease without esophagitis; Z53.8 Procedure and treatment not carried out for other reasons; Z79.899 Other long term (current) drug therapy; Z88.5 Allergy status to narcotic agent; Z88.0 Allergy status to penicillin; Z88.2 Allergy status to sulfonamides
CPT/HCPCS: 45378; J2704; J7030

== ENCOUNTER 2025-02-10 06:25 | Outpatient (RCR) | payer MEDICARE, SELFPAY | END 2025-03-11 23:59 | disposition home or self-care (01) | LOC: SPT 06:25 | PROVIDERS: Visit Provider Nurse Practitioner Family | DX: M25.552 Pain in left hip (principal) | CPT/HCPCS: 97161 ==

== ENCOUNTER 2025-03-12 05:00 | Outpatient (RCR) | payer MEDICARE, SELFPAY | END 2025-04-11 23:59 | disposition home or self-care (01) | LOC: SPT 05:00 | PROVIDERS: Visit Provider Nurse Practitioner Family | DX: M25.552 Pain in left hip (principal) | CPT/HCPCS: 97110 ==